=== PATIENT | female | born 1985 | race African-American/Black ===

== ENCOUNTER 2016-10-28 20:19 | Emergency (ER) | payer MEDICAID ==
[~2016-10-28] VITALS: Ht 154.9 cm; Wt 90.7 kg
[2016-10-28 20:25] VITALS: BP 139/91
--- NOTE | 2016-10-28 20:56 | NUR ---
Patient to bed 08.
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
--- NOTE | 2016-10-28 21:12 | NUR ---
Dr. Fields evaluating patient at bedside.
[2016-10-28] MEDS ORDERED: KETOROLAC 60 MG/2 ML VIAL IM ONE (21:20)
[2016-10-28 23:13] VITALS: BP 127/89
--- NOTE | 2016-10-28 23:13 | NUR ---
Patient discharged with v/s stable. Written and verbal after care instructions given and explained. Patient alert, oriented and verbalized understanding of instructions. Ambulatory with steady gait. All questions addressed prior to discharge. ID band removed. Patient advised to follow up with PMD. Rx of NAPROSYN 375MG given. Patient educated on indication of medication including possible reaction and side effects. Opportunity to ask questions provided and answered.
== END 2016-10-28 23:13 | disposition home or self-care (01) ==
LOC: MED 20:19
PROC: 3E033GC Introduction of Other Therapeutic Substance into Peripheral Vein, Percutaneous Approach (ICD-10-PCS; principal; 2016-10-28)
DX: S09.90XA Unspecified injury of head, initial encounter (principal); S13.9XXA Sprain of joints and ligaments of unspecified parts of neck, initial encounter; S33.5XXA Sprain of ligaments of lumbar spine, initial encounter; I10 Essential (primary) hypertension; V43.52XA Car driver injured in collision with other type car in traffic accident, initial encounter; Y92.410 Unspecified street and highway as the place of occurrence of the external cause
CPT/HCPCS: 96372; 99283; J1885

== ENCOUNTER 2023-05-30 03:55 | Observation (INO) | payer MEDICAID ==
[~2023-05-30] VITALS: Ht 162.6 cm; Wt 99.8 kg
[2023-05-30 04:06] VITALS: BP 157/104; PULSE 94; RESP 20; TEMP 98; O2SAT 98
[2023-05-30 04:50] LABS: APPEARANCE,URINE CLEAR (CLEAR); BILIRUBIN,URINE NEGATIVE (NEGATIVE); BLOOD, URINE TRACE-I (NEGATIVE); COLOR,URINE YELLOW (YELLOW); LEUKOCYTE ESTERASE ,URINE NEGATIVE (NEGATIVE); NITRITE, URINE NEGATIVE (NEGATIVE); PH,URINE 6.5 (5.0-9.0); PROTEIN,URINE NEGATIVE (NEGATIVE); UGLUCOSE NEGATIVE (NEGATIVE); UROBILINOGEN,URINE 0.2 EU/dL (0.2 - 1)
[2023-05-30 04:54] LABS: BACTERIA,URINE 10-30 (MOD) /HPF (None Seen); MUCUS,URINE 1+ /LPF (None Seen); RBC,URINE 0-5 /HPF (0-5); SQUAMOUS EPITHELIAL CELL,UR 4-10 (MOD) /LPF (0-3 (FEW))
[2023-05-30] MEDS ORDERED: KETOROLAC 30 MG/ML VIAL IVP ONE (05:00)
[2023-05-30] MEDS ORDERED: NACL 0.9% 1,000 ML IV SCH (05:00)
[2023-05-30] MEDS ORDERED: cefTRIAXone 1,000 MG VIAL ONE (05:09)
[2023-05-30 05:31] LABS: BASOPHILS % (AUTO) 0.3 % (0.0-2.0); EOSINOPHILS # (AUTO) 0.1 K/uL (0-0.4); EOSINOPHILS % (AUTO) 1.1 % (0.0-4.0); HEMATOCRIT 39.2 % (36-48); HEMOGLOBIN 12.9 g/dL (12.0-16.0); LYMPHOCYTES # (AUTO) 1.9 K/uL (2.5-16.5); LYMPHOCYTES % (AUTO) 17.1 % (20.5-51.1); MEAN CORPUSCULAR HEMOGLOBIN 30 pg (27-31); MEAN CORPUSCULAR HGB CONC 33 g/dL (33-37); MEAN CORPUSCULAR VOLUME 91.1 fL (80-94); MONOCYTES # (AUTO) 0.9 K/uL (0.8-1.0); MONOCYTES % (AUTO) 8.1 % (1.7-9.3); NEUTROPHILS # (AUTO) 8.4 K/uL (1.8-7.7); NEUTROPHILS % (AUTO) 73.4 % (42.2-75.2); PLATELET COUNT (AUTO) 315 K/uL (140-450); RED CELL DISTRIBUTION WIDTH 13.2 % (11.6-13.7); WHITE BLOOD COUNT (AUTO) 11.4 K/uL (4.8-10.8)
[2023-05-30 07:49] LABS: ALBUMIN 3.5 g/dL (3.4-5.0); ANION GAP 13.9 (8-16); CALCIUM 8.5 mg/dL (8.5-10.1); CARBON DIOXIDE 25.9 mmol/L (21-32); CREATININE 0.7 mg/dL (0.6-1.3); POTASSIUM 3.8 mmol/L (3.5-5.1); TOTAL BILIRUBIN 0.2 mg/dL (0.0-1.0); TOTAL PROTEIN, SERUM 7.6 g/dL (6.4-8.2)
[2023-05-30] MEDS ORDERED: metroNIDAZOLE 500 MG/NS PREMIX 100 ML IV ONE (08:20)
[2023-05-30] MEDS ORDERED: ZOLPIDEM 5 MG TAB PO PRN (10:40)
[2023-05-30] MEDS ORDERED: LORazepam 1 MG TAB PO PRN (10:40)
[2023-05-30] MEDS ORDERED: MAG SULF 2000 MG/WATER PREMIX 50 ML IV PRN (10:40)
[2023-05-30] MEDS ORDERED: HYDROcodone/APAP 5/325 MG 1 TAB TAB PO PRN (10:40)
[2023-05-30] MEDS ORDERED: ONDANSETRON 4 MG/2 ML VIAL IVP PRN (10:40)
[2023-05-30] MEDS ORDERED: MORPHINE SULFATE 4 MG/ML SYR IVP PRN (10:40)
[2023-05-30] MEDS ORDERED: POTASSIUM CHLORIDE 10 MEQ TABER PO PRN (10:40)
[2023-05-30] MEDS ORDERED: KCL 20 MEQ IN 100 mL PREMIX 200 ML IV PRN (10:40)
[2023-05-30] MEDS ORDERED: ACETAMINOPHEN 325 MG TAB PO PRN (10:40)
[2023-05-30] MEDS: NACL 0.9% 1,000 ML IV SCH ×2 (11:29→23:10)
[2023-05-30 11:45] VITALS: PULSE 71; RESP 20; O2SAT 98
[2023-05-30 12:00] VITALS: BP 136/88; PULSE 71; RESP 17; TEMP 98.1; O2SAT 98
[2023-05-30] MEDS: LEVOFLOXACIN 750 MG/D5W PREMIX 150 ML IV SCH (12:29)
[2023-05-30] MEDS: metroNIDAZOLE 500 MG/NS PREMIX 100 ML IV SCH ×2 (14:52→20:41)
[2023-05-30 16:00] VITALS: BP 132/89; PULSE 81; RESP 17; TEMP 98.3; O2SAT 98
[2023-05-30 20:00] VITALS: BP 143/94; PULSE 79; PULSE 81; RESP 17; TEMP 98.5; O2SAT 98
[2023-05-31 04:00] VITALS: BP 123/79; PULSE 66; RESP 18; TEMP 98.4; O2SAT 98
[2023-05-31] MEDS: NACL 0.9% 1,000 ML IV SCH (04:20)
[2023-05-31] MEDS: metroNIDAZOLE 500 MG/NS PREMIX 100 ML IV SCH (04:20)
[2023-05-31 07:11] LABS: ANION GAP 11.2 (8-16); CARBON DIOXIDE 26.7 mmol/L (21-32); CREATININE 0.7 mg/dL (0.6-1.3); POTASSIUM 3.9 mmol/L (3.5-5.1)
[2023-05-31 07:13] LABS: BASOPHILS % (AUTO) 0.1 % (0.0-2.0); EOSINOPHILS # (AUTO) 0.1 K/uL (0-0.4); EOSINOPHILS % (AUTO) 2.3 % (0.0-4.0); HEMATOCRIT 37.7 % (36-48); HEMOGLOBIN 12.8 g/dL (12.0-16.0); LYMPHOCYTES # (AUTO) 1.7 K/uL (2.5-16.5); LYMPHOCYTES % (AUTO) 27.6 % (20.5-51.1); MEAN CORPUSCULAR HEMOGLOBIN 31 pg (27-31); MEAN CORPUSCULAR HGB CONC 34 g/dL (33-37); MEAN CORPUSCULAR VOLUME 90.6 fL (80-94); MONOCYTES # (AUTO) 0.7 K/uL (0.8-1.0); MONOCYTES % (AUTO) 12.2 % (1.7-9.3); NEUTROPHILS # (AUTO) 3.5 K/uL (1.8-7.7); NEUTROPHILS % (AUTO) 57.8 % (42.2-75.2); PLATELET COUNT (AUTO) 296 K/uL (140-450); RED BLOOD CELL COUNT(AUTO) 4.16 MIL/uL (4.20-5.40); RED CELL DISTRIBUTION WIDTH 12.9 % (11.6-13.7); WHITE BLOOD COUNT (AUTO) 6.1 K/uL (4.8-10.8)
[2023-05-31 08:00] VITALS: PULSE 81; RESP 16; O2SAT 97
[2023-05-31] MEDS ORDERED: ENOXAPARIN 40 MG/0.4 ML SYR SUBQ SCH (09:00)
[2023-05-31] MEDS: LEVOFLOXACIN 750 MG/D5W PREMIX 150 ML IV SCH (09:39)
[2023-05-31] MEDS ORDERED: METR-435 PO (12:15)
[2023-05-31] MEDS ORDERED: LEVO750T75 PO (12:15)
[2023-05-31 14:51] VITALS: BP 123/79; PULSE 81; RESP 16; TEMP 98.4
== END 2023-05-31 16:23 | disposition home or self-care (01) ==
LOC: MED 03:55 → MTU 10:39
PROVIDERS: ADMIT Internal Medicine; ATTEND Internal Medicine
DX: K57.32 Diverticulitis of large intestine without perforation or abscess without bleeding (principal); N39.0 Urinary tract infection, site not specified; I10 Essential (primary) hypertension; Z79.899 Other long term (current) drug therapy
CPT/HCPCS: 36415; 74176; 80048; 80053; 81001; 81025; 83735; 85025; 87040; 87081; 87086; 96361; 96365; 96366; 96367; 96372; 96375; 99285; G0378; J0696; J1650; J1885; J1956; J3490